=== PATIENT | female | born 1995 | race Caucasian/White ===

== ENCOUNTER → 2017-10-08 | Outpatient (CLI) | payer BC ==
--- NOTE | 2017-10-08 15:02 | NM ---
EXAMINATION TYPE: NM hepatobiliary w EF DATE OF EXAM: 10/08/2017 COMPARISON: NONE HISTORY: Pain TECHNIQUE: After the intravenous administration of 5.06 mCi Tc 99m Mebrofenin hepatobiliary scintigra phy is performed. Immediate images post injection. FINDINGS: There is satisfactory initial accumulation of tracer by the liver. The gallbladder is visualized wit hin normal minutes. The small bowel activity is noted within 60 minutes. At one hour 8 ounces of or al ensure plus is given to mimic CCK and gallbladder ejection fraction is calculated at 66 %, in the normal range. Therefore there is no scintigraphic evidence of cystic or common bile duct obstruction to suggest acute cholecystitis or gallbladder dyskinesia. IMPRESSION: Exam is within normal limits.
== END | disposition home or self-care (01) ==
LOC: RADNMMAIN 12:42
PROVIDERS: ATTEND Family Medicine
DX: D18.03 Hemangioma of intra-abdominal structures (principal); R11.2 Nausea with vomiting, unspecified; R10.11 Right upper quadrant pain
CPT/HCPCS: 78226; A9537

== ENCOUNTER → 2018-01-30 | Day surgery (SDC) | payer BC ==
[~2018-01-30] MED LIST: DEXAMETHASONE SOD PHOSPHATE 10 MG/ML 1 ML VIAL IV ONE; HYDROmorphone 0.5 MG/0.5 ML SYRINGE IVP PRN; LACTATED RINGERS 1,000 ML IV SCH; LIDOCAINE 1% 20 ML VIAL (10MG/ML) FOR IV START INTRADERMA PRN; LIDOCAINE 1% INJ 10MG/ML (20 ML MDV) ONE; ONDANSETRON 4 MG/2 ML VIAL IVP ONE; PROPOFOL 10 MG/ML 20 ML VIAL IV ONE; SCOPOLAMINE 1.5MG/72HR PATCH TRANSDERM ONE; fentaNYL (PF) 50 MCG/ML 2 ML AMP ONE
[2018-01-30 09:49] VITALS: RESP 16; TEMP 98.2
--- NOTE | 2018-01-30 10:08 | P.GSHP ---
History of Present Illness H&P Date: 01/30/18 CHIEF COMPLAINT: GERD and change in bowel habits HISTORY OF PRESENT ILLNESS: The patient is a 22-year-old female who presents with gastroesophageal reflux disease and change in bowel habits. Upper and lower endoscopy were offered for further evaluation and management. PAST MEDICAL HISTORY: Please see list. PAST SURGICAL HISTORY: Please see list. MEDICATIONS: Please see list. ALLERGIES: Please see list. SOCIAL HISTORY: No illicit drug use FAMILY HISTORY: No reports of Crohn disease or ulcerative colitis. REVIEW OF ORGAN SYSTEMS: CONSTITUTIONAL: No reports of fevers or chills. GI: Denies any blood in stools or constipation. PHYSICAL EXAM: VITAL SIGNS: Stable GENERAL: Well-developed pleasant in no acute distress. HEENT: No scleral icterus. Extraocular movements grossly intact. Moist buccal mucosa. NECK: Supple without lymphadenopathy. CHEST: Unlabored respirations. Equal bilateral excursions. CARDIOVASCULAR: Regular rate and rhythm. Distal 2+ pulses. ABDOMEN: Soft, nondistended. MUSCULOSKELETAL: No clubbing, cyanosis, or edema. ASSESSMENT: 1. Gastroesophageal reflux disease 2. Change in bowel habits PLAN: 1. Recommend proceeding with an upper and lower endoscopy Past Medical History Past Medical History: GERD/Reflux, Pneumonia Additional Past Medical History / Comment(s): CURRENT: ABD MIGRAINES History of Any Multi-Drug Resistant Organisms: None Reported Past Surgical History: Adenoidectomy, Tonsillectomy Past Anesthesia/Blood Transfusion Reactions: Motion Sickness Past Psychological History: Anxiety Smoking Status: Never smoker Past Alcohol Use History: Occasional Past Drug Use History: None Reported Medications and Allergies Home Medications Medication Instructions Recorded Confirmed Type Calcium Carbonate [Tums] 2 tab PO DIRECTED 01/28/18 01/30/18 History Topiramate [Topamax] 25 mg PO BID 01/28/18 01/30/18 History Norgestimate-Ethinyl Estradiol 35 mcg PO DAILY 01/30/18 01/30/18 History [Sprintec 28 Day Tablet] Allergies Allergy/AdvReac Type Severity Reaction Status Date / Time No Known Allergies Allergy Verified 01/30/18 09:52 Surgical - Exam Vital Signs Temp Pulse Resp BP Pulse Ox 98.2 F 90 16 139/85 98 01/30/18 09:47 01/30/18 09:47 01/30/18 09:47 01/30/18 09:47 01/30/18 09:47
--- NOTE | 2018-01-30 10:27 | P.PCN ---
Date of Procedure: 01/30/18 Description of Procedure: PREOPERATIVE DIAGNOSIS: Gastroesophageal reflux disease. Morbid obesity. POSTOPERATIVE DIAGNOSIS: Gastroesophageal reflux disease. Morbid obesity. Gastritis. Diaphragmatic hiatal hernia OPERATION: Esophagogastroduodenoscopy with biopsies along antrum and distal esophagus SURGEON: Rylee Skelton MD ANESTHESIA: MAC. INDICATIONS: The patient is a 22-year-old female who presents with a history of reflux disease. Benefits and risks of the procedure were described. Informed consent was obtained. DESCRIPTION: The patient was brought into the endoscopy suite and laid in the left lateral decubitus position. An Olympus gastroscope was passed along the posterior oropharynx down to the distal esophagus where the squamocolumnar junction was encountered at 36 cm from the incisors. The stomach was entered and bile reflux was found. Additional findings are listed below. Biopsies with cold forceps were obtained of the antrum and distal esophagus. The first through third portion of the duodenum was examined and unremarkable. Retroflexion of the scope confirmed Hill grade 2 lower esophageal valve. The squamocolumnar junction demonstrated severe LA grade C erosive esophagitis. The stomach was desufflated. The patient tolerated the procedure well. FINDINGS: Squamocolumnar junction 36 cm from the incisors. Diaphragmatic hiatus at 37 cm. Hiatal hernia, 1 cm, sliding type Hill grade 2 lower esophageal valve. Severe erosive esophagitis LA grade C extending from 30 cm to 36 cm from the incisors No active duodenitis. Chronic gastritis RECOMMENDATIONS: Upper endoscopy as needed.
--- NOTE | 2018-01-30 10:38 | P.PCN ---
Date of Procedure: 01/30/18 Description of Procedure: PREOPERATIVE DIAGNOSIS: Altered bowel function History of rectal bleeding POSTOPERATIVE DIAGNOSIS: Altered bowel function History of rectal bleeding External hemorrhoid, anal skin tag OPERATION: Colonoscopy to the ileocecal valve and appendiceal orifice Colonoscopy with random cold forceps biopsies SURGEON: Rylee Skelton MD. ANESTHESIA: MAC. INDICATIONS: The patient is a 22-year-old female who presents for change in bowel habits and rectal bleeding. Benefits and risks were described and informed consent was obtained. DESCRIPTION OF PROCEDURE: The patient had undergone Gatorade, MiraLAX and Dulcolax prep. She had been brought into the operating room and laid in the left lateral decubitus position. After adequate intravenous sedation, the rectum was examined with 2% lidocaine jelly. External hemorrhoids with small anal skin tag at 6:00 was encountered. The rectal tone was within normal limits. No lesions were palpated in the rectal vault. An Olympus colonoscope was advanced until the ileocecal valve and appendiceal orifice were clearly viewed. The prep was good with visualization of the mucosal folds. The scope was removed with visualization of each mucosal fold. No scattered diverticulosis was encountered. No colonic polyps were found. No evidence of focal colitis was found. Random biopsies were obtained throughout the colon for history of change in bowel habits. No evidence of active bleeding was found. Biopsies were obtained with cold forceps along the ileocecal valve and cecum for Crohn's colitis. Retroflexion of the scope demonstrated grade 1 internal hemorrhoids. The colon was desufflated. The patient had tolerated the procedure well. Withdrawal time was over 6 minutes. FINDINGS: Internal hemorrhoids, grade 1 External hemorrhoids with small anal skin tag at 6:00 was encountered as likely source of previous bleed. No scattered diverticulosis. No adenomatous polyps. No focal colitis. Biopsies were obtained with cold forceps along the ileocecal valve and cecum for Crohn's colitis. RECOMMENDATIONS: Lower endoscopy every as needed. Plan - Discharge Summary Discharge Rx Participant: No New Discharge Prescriptions: New Omeprazole 40 mg PO DAILY #30 capsule.dr Hendricks Action Topiramate [Topamax] 25 mg PO BID Calcium Carbonate [Tums] 2 tab PO DIRECTED Norgestimate-Ethinyl Estradiol [Sprintec 28 Day Tablet] 35 mcg PO DAILY Discharge Medication List Calcium Carbonate [Tums] 2 tab PO DIRECTED 01/28/18 [History] Topiramate [Topamax] 25 mg PO BID 01/28/18 [History] Norgestimate-Ethinyl Estradiol [Sprintec 28 Day Tablet] 35 mcg PO DAILY [History] Omeprazole 40 mg PO DAILY #30 capsule. 01/30/18 [Rx] Follow up Appointment(s)/Referral(s): Rylee Skelton MD [STAFF PHYSICIAN] - 02/19/18 9:00 am Patient Instructions/Handouts: *[facility] - (Anesthesia) Endoscopy Discharge Instructions, Gastroesophageal Reflux Disease (DC), Corrosive Esophagitis (DC), Colonoscopy (DC) Discharge Disposition: HOME SELF-CARE
[2018-01-30 11:14] VITALS: BP 119/82; PULSE 74
== END | disposition home or self-care (01) ==
LOC: ORWHC2ENDO 09:20
PROVIDERS: ATTEND Surgery Plastic and Reconstructive Surgery
DX: K29.50 Unspecified chronic gastritis without bleeding (principal); K21.0 Gastro-esophageal reflux disease with esophagitis; R19.4 Change in bowel habit; K44.9 Diaphragmatic hernia without obstruction or gangrene; K62.5 Hemorrhage of anus and rectum; E66.01 Morbid (severe) obesity due to excess calories; K64.0 First degree hemorrhoids; K64.4 Residual hemorrhoidal skin tags; Z87.01 Personal history of pneumonia (recurrent); G43.909 Migraine, unspecified, not intractable, without status migrainosus; F41.9 Anxiety disorder, unspecified; Z79.890 Hormone replacement therapy; Z79.899 Other long term (current) drug therapy; Z68.34 Body mass index [BMI] 34.0-34.9, adult
CPT/HCPCS: 81025; 88305; 45380; 43239; J2001; J3010; J2704